=== PATIENT | female | born 1995 | race Hispanic/Latino ===

== ENCOUNTER 2022-11-04 10:43 | Inpatient (IN) | payer MEDICAID, OTHER ==
[2022-11-09] MEDS ORDERED: Misoprostol 200 MCG TAB PR PRN (08:02)
[2022-11-09] MEDS ORDERED: Carboprost 250 MCG/ML AMP IM PRN (08:02)
[2022-11-09] MEDS ORDERED: NS w/ Oxytocin 30 units 500 ML IV SCH ×3 (08:02→21:27)
[2022-11-09] MEDS ORDERED: Acetaminophen 500 MG TAB PO PRN (08:02)
[2022-11-09] MEDS ORDERED: Tranexamic Acid 1,000 MG/10 ML VIAL IVP PRN (08:02)
[2022-11-09] MEDS ORDERED: HYDROcodone/Acetaminophen 5/325 mg Tablet PO PRN (08:02)
[2022-11-09] MEDS ORDERED: hydrALAZINE 20 MG/ML VIAL SLOW IVP PRN ×2 (08:02→21:27)
[2022-11-09] MEDS ORDERED: Fentanyl 100 MCG/2 ML VIAL SLOW IVP PRN ×2 (08:02→19:23)
[2022-11-09] MEDS ORDERED: Ibuprofen 800 MG TAB PO PRN (08:02)
[2022-11-09] MEDS ORDERED: Methylergonovine 0.2 MG/ML VIAL IM PRN (08:02)
[2022-11-09] MEDS ORDERED: Lidocaine 1% (PF) 30 ML VIAL SC PRN (08:02)
[2022-11-09] MEDS ORDERED: Butorphanol Tartrate 1 MG/ML VIAL SLOW IVP PRN (08:02)
[2022-11-09] MEDS ORDERED: Promethazine HCl 25 MG/ML VIAL IM PRN ×3 (08:02→21:27)
[2022-11-09] MEDS ORDERED: Diphenoxylate HCl/Atropine Tablet PO PRN (08:02)
[2022-11-09] MEDS ORDERED: Ondansetron PF 4 MG/2 ML Vial IVP PRN ×3 (08:02→21:27)
[2022-11-09] MEDS ORDERED: Misoprostol 100 MCG TAB ONE (08:08)
[2022-11-09] MEDS: Lactated Ringer's 1,000 ML IV SCH ×2 (08:10→17:16)
[2022-11-09 09:19] LABS: HBSAg Index 0.13 S/CO (0-0.99); Hep B Surf Ag - L&D Non-Reactive S/CO (NonReactive)
[2022-11-09 09:21] LABS: Syphilis Antibody Nonreactive (Nonreactive); Syphilis Antibody Index 0.03 S/CO (<1.00 Non-Reactive)
[2022-11-09 09:33] VITALS: BMI 31.1
[2022-11-09 09:34] LABS: Hemoglobin 8.7 g/dL (12.0-15.5); Mean Corpuscular HGB CONC 30.7 g/dL (32.0-36.0); Mean Corpuscular Hemoglobin 26.9 pg (27.0-33.0); Mean Corpuscular Volume 87.3 fl (81.6-98.3); Mean Platelet Volume 11.1 fl (7.4-10.4); Platelet Count 311 10x3/uL (150-450); RBC Distribution Width 16.2 % (11.5-14.5); Red Blood Cell (RBC) Count 3.24 10x6/uL (3.90-5.03); White Blood Cell (WBC) Count 12.5 10x3/uL (3.5-10.5)
[2022-11-09] MEDS: Misoprostol 100 MCG TAB VAG SCH ×2 (13:10→20:19)
[2022-11-09] MEDS ORDERED: Bupivacaine 0.25% HCL 30 ML VIAL ONE (13:56)
[2022-11-09] MEDS ORDERED: Terbutaline Sulfate 1 MG/ML VIAL ONE (17:00)
[2022-11-09] MEDS ORDERED: Fentanyl 2 mcg/Bup 0.1% Cadd 100 ML ONE (17:59)
[2022-11-09] MEDS ORDERED: CEFAZOLIN 2 GM VIAL ONE (18:33)
[2022-11-09] MEDS ORDERED: Azithromycin 500 MG VIAL ONE (18:34)
[2022-11-09] MEDS ORDERED: Oxytocin 10 UNITS/ML VIAL ONE ×2 (18:38→18:51)
[2022-11-09] MEDS ORDERED: Phenylephrine 40 MG/NS 250 ML 250 ML ONE (18:38)
[2022-11-09] MEDS ORDERED: PHENYLEPHRINE-NS 100 MCG/ML 10 ML SYRINGE ONE ×2 (18:38→19:03)
[2022-11-09] MEDS ORDERED: Ondansetron PF 4 MG/2 ML Vial ONE (18:42)
[2022-11-09] MEDS ORDERED: Metoclopramide HCl 10 MG/2 ML VIAL ONE ×2 (18:42→18:54)
[2022-11-09] MEDS ORDERED: Carboprost 250 MCG/ML AMP ONE (18:53)
[2022-11-09] MEDS ORDERED: Dexamethasone 4 mg/ml Vial ONE (18:54)
[2022-11-09] MEDS ORDERED: Morphine PF 10 MG/10 ML VIAL ONE (19:01)
[2022-11-09] MEDS ORDERED: Meperidine HCl/PF 25 MG/ML VIAL SLOW IVP PRN (19:23)
[2022-11-09] MEDS ORDERED: diphenhydrAMINE 50 MG/ML VIAL IVP PRN (19:23)
[2022-11-09] MEDS ORDERED: Naloxone HCl 0.4 mg/ml Vial IV PRN (19:23)
[2022-11-09] MEDS ORDERED: Moisturizing Cream (Eucerin) 113 GM JAR TOP PRN (19:23)
[2022-11-09] MEDS ORDERED: Naloxone HCl 0.4 mg/ml Vial IVP PRN ×2 (19:23)
[2022-11-09] MEDS ORDERED: Ketorolac Tromethamine 30 MG/ML VIAL IVP PRN (19:23)
[2022-11-09] MEDS ORDERED: Promethazine HCl 25 MG SUPP PR PRN (19:23)
[2022-11-09] MEDS ORDERED: Ondansetron HCl/PF 4 MG/2 ML Vial IVP PRN (19:23)
[2022-11-09] MEDS ORDERED: Ketorolac Tromethamine 30 MG/ML VIAL IVP SCH (19:30)
[2022-11-09] MEDS ORDERED: Communication Order-Pharmacy FS SCH (19:30)
[2022-11-09] MEDS ORDERED: Diphenoxylate HCl/Atropine Tablet PO SCH (20:15)
[2022-11-09 20:44] LABS: INR-International Normal Ratio 0.9; PTT 26.6 sec (22.0-33.0); Prothrombin Time 9.9 sec (9.5-12.1)
[2022-11-09 21:24] LABS: D-Dimer Test 6.23 mg/L FEU (0.19-0.50)
[2022-11-09] MEDS ORDERED: Boostrix 0.5 ML (Tdap) VIAL (>/=7 yrs of age) IM ONE (21:27)
[2022-11-09] MEDS ORDERED: diphenhydrAMINE 25 MG CAP PO PRN (21:27)
[2022-11-09] MEDS ORDERED: Simethicone Chewable 80 MG TAB PO PRN (21:27)
[2022-11-09] MEDS ORDERED: Lanolin Ointment 7 GM TUBE TOP PRN (21:27)
[2022-11-09] MEDS ORDERED: Bisacodyl 10 MG SUPP PR PRN (21:27)
[2022-11-09] MEDS ORDERED: Docusate 100 MG CAP PO SCH (21:45)
[2022-11-09] MEDS ORDERED: Ferrous Sulfate 325 MG TAB PO SCH (21:45)
[2022-11-10] MEDS: Ketorolac Tromethamine 30 MG/ML VIAL IVP SCH ×3 (01:50→13:51)
[2022-11-10 05:30] LABS: Hemoglobin 6.9 g/dL (12.0-15.5); Mean Corpuscular HGB CONC 31.7 g/dL (32.0-36.0); Mean Corpuscular Hemoglobin 27.5 pg (27.0-33.0); Mean Corpuscular Volume 86.9 fl (81.6-98.3); Mean Platelet Volume 10.9 fl (7.4-10.4); Platelet Count 269 10x3/uL (150-450); RBC Distribution Width 16.2 % (11.5-14.5); Red Blood Cell (RBC) Count 2.51 10x6/uL (3.90-5.03); White Blood Cell (WBC) Count 23.6 10x3/uL (3.5-10.5)
[2022-11-10] MEDS: Ferrous Sulfate 325 MG TAB PO SCH ×2 (08:44→21:45)
[2022-11-10] MEDS: Docusate 100 MG CAP PO SCH ×2 (08:44→21:45)
[2022-11-10] MEDS: Prenatal Vitamin 1 TAB PO SCH (08:44)
[2022-11-10] MEDS: HYDROcodone/Acetaminophen 5/325 mg Tablet PO PRN (20:07)
[2022-11-10] MEDS: Ibuprofen 800 MG TAB PO SCH (21:46)
[2022-11-11] MEDS: HYDROcodone/Acetaminophen 5/325 mg Tablet PO PRN ×4 (03:00→19:02)
[2022-11-11] MEDS: Ibuprofen 800 MG TAB PO SCH ×3 (05:47→21:36)
[2022-11-11] MEDS: Prenatal Vitamin 1 TAB PO SCH (08:02)
[2022-11-11] MEDS: Docusate 100 MG CAP PO SCH ×2 (08:02→21:36)
[2022-11-11] MEDS: Ferrous Sulfate 325 MG TAB PO SCH ×2 (08:02→21:36)
[2022-11-12] MEDS: HYDROcodone/Acetaminophen 5/325 mg Tablet PO PRN ×2 (01:48→08:45)
[2022-11-12] MEDS: Ibuprofen 800 MG TAB PO SCH ×2 (06:19→14:22)
[2022-11-12] MEDS: Prenatal Vitamin 1 TAB PO SCH (08:44)
[2022-11-12] MEDS: Ferrous Sulfate 325 MG TAB PO SCH (08:44)
[2022-11-12] MEDS: Docusate 100 MG CAP PO SCH (08:45)
[2022-11-12 12:24] VITALS: BP 112/65; TEMP 98.3
[2022-11-12] MEDS ORDERED: Milk Of Magnesia 30 ML UDCUP PO SCH (13:30)
== END 2022-11-12 15:30 | disposition home or self-care (01) | DRG 787 ==
LOC: CSHLD 11-09 06:36 → CSHPP 11-09 22:02
PROVIDERS: ADMIT Family Medicine; ATTEND Family Medicine
PROC: 10D00Z1 Extraction of Products of Conception, Low, Open Approach (ICD-10-PCS; principal; 2022-11-09)
PROC: 3E0P7VZ Introduction of Hormone into Female Reproductive, Via Natural or Artificial Opening (ICD-10-PCS; 2022-11-09)
PROC: 10H07YZ Insertion of Other Device into Products of Conception, Via Natural or Artificial Opening (ICD-10-PCS; 2022-11-09)
PROC: 4A1HXCZ Monitoring of Products of Conception, Cardiac Rate, External Approach (ICD-10-PCS; 2022-11-09)
PROC: 4A1HXFZ Monitoring of Products of Conception, Cardiac Rhythm, External Approach (ICD-10-PCS; 2022-11-09)
DX: O76 Abnormality in fetal heart rate and rhythm complicating labor and delivery (principal); O72.1 Other immediate postpartum hemorrhage; Z3A.40 40 weeks gestation of pregnancy; Z37.0 Single live birth; O77.0 Labor and delivery complicated by meconium in amniotic fluid
CPT/HCPCS: 36415; 51702; 82805; 85027; 85049; 85300; 85362; 85379; 85384; 85610; 85730; 86780; 86850; 86900; 86901; 87340; J1100; J1885; J2274; J2405; J2590; J2765; J7120; S0020